=== PATIENT | female | born 1950 | race Native Hawaiian/Other Pacific Islander ===

== ENCOUNTER 2016-07-04 11:01 | Emergency (ER) | payer BC | END 2016-07-04 11:39 | disposition left against medical advice (07) | LOC: C.ER 11:01 | DX: R06.02 Shortness of breath (principal); Z02.9 Encounter for administrative examinations, unspecified ==

== ENCOUNTER 2018-07-10 13:39 | Outpatient (CLI) | payer OTHER | END 2018-07-10 13:40 | disposition home or self-care (01) | LOC: C.LAB 13:39 ==